=== PATIENT | female | born 1960 | race Caucasian/White ===

== ENCOUNTER 2020-03-09 05:03 | Inpatient (IN) ==
--- NOTE | 2020-01-09 14:27 | PAT Medication Instructions ---
Medication Instructions Date of Service January 09, 2020 Home Medications ibuprofen 200 mg PO Q6H PRN ASK your surgeon for instructions ibuprofen 200 mg PO Q6H PRN OTHERWISE NOTHING TO EAT OR DRINK AFTER MIDNIGHT Other Notes If you have any questions please call us at [phone] or [phone] or [phone] or [phone]
--- NOTE | 2020-01-13 11:51 | Anesthesiology Consultation ---
Date of Service January 13, 2020 Assessment & Plan (1) Encounter for pre-operative examination: Chart Review Chart Review: Acceptable Risk for Surgery (pending preop Covid testing results ) and Patient seen in Pre Admission Testing Per PAT appt on 01/13/20, patient resides in [facility]. Travels to [facility] for work at [id number]. Uses PPE. 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 No known Covid positive contacts o r Covid related symptoms. Educated patient to follow up with surgeon's office regarding Covid testing. Educated on importance of self quarantining, social distancing and wearing mask in public both for the patient and household contacts. Teaching & Discussion Pre-Anesthesia Teaching/Discussion Notes: Instructed NPO after midnight before surgery,except medications with 15 cc of water. Medication instructions provided according to the PAT guidelines. History Surgery Operation Date: 01/28/20 11:40 Proposed Procedures p Left Total Knee Arthroplasty - Michael Prince DO Height/Weight Height: 5 ft 3 in Weight: 82.3 kg Allergies Allergy/AdvReac Type Severity Reaction Status Date / Time meperidine [From Demerol] Allergy Mild low blood Verified 01/07/20 15:18 pressure Medications Home Medications Medication Instructions Recorded Confirmed Last Taken ibuprofen 200 mg PO Q6H PRN 01/07/20 01/07/20 Unknown Past Medical History Medical History Osteoarthritis Exercise / Class Metabolic Activity II 4-5 Yardwork/Stairs/Walk up hill (ONE FLIGHT OF STAIRS - NO CHEST PAIN OR SOB ) Past Surgical History Surgical History Hx of arthroscopy of left knee x 2 Hx of breast reduction, elective Hx of foot surgery right bunionectomy and hammer toe Hx of hysterectomy Past Anesthesia History No Hx of Anesthesia Complications and No Family Hx of Anesthesia Complications History of PONV No Hx of PONV and Hx of Motion Sickness (does get car sick - wears patches ) Social History Smoking Status: Never smoker Do You Dip or Chew Tobacco: No Hx Alcohol Use: No Hx Substance Use: No substance use type: does not use Review of Systems Patient denies chest pain, shortness of breath, dyspnea on exertion, reflux, cough, wheezing, palpitations. No hx of seizures, stroke, [place], apnea/snoring. No hx of blood clots or blood transfusions Physical Exam Vital Signs VITALS BP 156/65 P 67 TEMP 98.0 SP02 99% RESP 16 Constitutional no acute distress ENMT Mouth: no TMJ clicking Thyromental Distance: > or= 3.5 Finger Breadths (3.5) Mallampati Class: II Capped molar Neck + thick neck (mild ); neck extension not limited Respiratory normal respiratory effort; no respiratory distress Auscultation: lungs clear to auscultation bilaterally; no wheezes Cardiovascular Rate/Rhythm: regular rate and regular rhythm Heart Sounds: no murmur Vessels: no carotid bruit Musculoskeletal Spine: no pain with cervical ROM Neurologic moves all extremities Psychiatric Orientation: alert Testing Laboratory Results 01/13/20 12:14 01/13/20 12:14 PT 11.0 Seconds (9.0-12.0) 01/13/20 12:14 INR 1.0 (0.9-1.1) 01/13/20 12:14 APTT 26.9 Seconds (21.0-31.0) 01/13/20 12:14 Hemoglobin A1c 5.6 % (4.5-5.6) 01/13/20 12:14 Urine Color Yellow 01/13/20 12:14 Urine Appearance Clear (Clear) 01/13/20 12:14 Urine pH 5.0 (4.5-7.5) 01/13/20 12:14 Ur Specific Welsh 1.022 (1.000-1.030) 01/13/20 12:14 Urine Protein Negative (Negative) 01/13/20 12:14 Urine Glucose (UA) Negative (Negative) 01/13/20 12:14 Urine Ketones Negative (Negative) 01/13/20 12:14 Urine Nitrite Negative (Negative) 01/13/20 12:14 Ur Leukocyte Esterase 1+ (Negative) H 01/13/20 12:14 Urine WBC (Auto) 5-10 /hpf (0-5) H 01/13/20 12:14 Urine RBC (Auto) 0-4 /hpf (0-4) 01/13/20 12:14 U Hyaline Cast (Auto) 1-5 /lpf (0-5) 01/13/20 12:14 U Epithel Cells (Auto) >30 /lpf (0-5) H 01/13/20 12:14 Urine Bacteria (Auto) Negative (Negative) 01/13/20 12:14 Blood Type O Positive 01/13/20 12:14 Antibody Screen NEGATIVE 01/13/20 12:14 Electrocardiogram Date: 01/13/20 Findings: + NSR @ (65) Normal EKG. Chest X-Ray Date: 01/13/20 Findings: + NAD
--- NOTE | 2020-01-13 12:53 | XRay Report ---
XR chest Pre-admission PA/Lat HISTORY: 59 years-old Female pat preoperative exam. No acute chest complaints COMPARISON: None TECHNIQUE: PA and lateral views of the chest FINDINGS: Cardiomediastinal and hilar silhouettes are within normal limits. No pneumothorax, pleural effusion, airspace consolidation or overt pulmonary edema. Bones of the chest appear grossly intact. Degenerati ve changes of the shoulders and spine. IMPRESSION: No acute process. ACT 112: Negative or not required by law. The above report was generated using voice recognition software. It may contain grammatical, syntax o r spelling errors. Electronically signed by: Naveen Mcknight M.D. 01/13/2020 12:51 PM
--- NOTE | 2020-01-13 13:26 | History & Physical Report ---
Date of Service January 13, 2020 date of surgery: 01/28/20 procedure: Left Total Knee Arthroplasty Assessment & Plan (1) Arthritis of knee, left: Risks and benefits of procedure discussed in detail today, patient would like to proceed with a total knee replacement at [facility] as scheduled. will obtain medical clearance from Dr Meléndez prior to surgery as well as obtain PATs at [facility]. Will place on ASA 81mg po bid x 1 month post op, f/u 2 weeks post op for routine post-operative care and x-ray, sooner if having any problems. will make arrangements for HHPT at the time of discharge. At this point in time, has failed conservative measures and would like to proceed with surgical intervention. The risks and benefits have been discussed including, but not limited to, risk of infection, nerve injury, stiffness, loss of motion, failure to improve, etc. Reasonable outcomes and options of treatment were discussed. An explanation of appropriate alternatives to the procedure that may be advantageous were discussed and their risks and benefits, as well as the risks and benefits of not proceeding with treatment. I offered to answer any additional inquiries concerning the treatment involved. All the patient's questions were answered. The patient is agreeable, understanding of the treatment plan and alternatives, and wishes to proceed with the treatment plan. History of Present Illness Chief Complaint: left knee pain Primary Care Provider: Everton Medhat Cony is a 59 year old female who complains of left knee pain, presents for pre-op evaluation prior to a left total knee replacement by dr Prince at [facility]. she complains of pain, crepitus, decreased range of motion and stiffness in her left knee. she states that the symptoms have been chronic and have gradually worsened. she states that the symptoms occur constantly with intermittent worsening. Currently the patient states that the symptoms are moderate-severe. The pain is described as aching, sharp and throbbing. The symptoms are aggravated by ascending stairs, daily activities, first steps while awake walking. Prior NSAIDs include Motrin. she has been treated with previous cortisone injections as well as viscosupplementation injections in the past without much relief. she has had 2 prior knee scopes in 2013 and 2016. Allergies Allergy/AdvReac Type Severity Reaction Status Date / Time meperidine [From Demerol] Allergy Mild low blood Verified 01/07/20 15:18 pressure Home Medications Home Medications Medication Instructions Recorded Confirmed Type ibuprofen 200 mg PO Q6H PRN 01/07/20 01/07/20 History Past Med/Surg History Medical History Osteoarthritis Surgical History Hx of arthroscopy of left knee x 2 Hx of breast reduction, elective Hx of foot surgery right bunionectomy and hammer toe Hx of hysterectomy Social History Smoking Status: Never smoker Second Hand Exposure: No; Do You Dip or Chew Tobacco: No; Tobacco Cessation Education Requested by Patient: No Hx Alcohol Use: No Hx Substance Use: No Preferred Language: Maldivian Communication Ability: Effective 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 Beliefs That Will Affect Care: None Current Living Situation: Spouse Other Information That Helps Us Care for You: No Feels Safe at Home: Yes Safety Concerns: Feels Safe At This Time Assistive Devices: Glasses Review of Systems Review of Systems: All systems reviewed & are unremarkable except as noted in HPI & below Constitutional: no fever, no chills and no sweats Respiratory: no cough and no dyspnea Cardiovascular: no chest pain, no dyspnea and no orthopnea Gastrointestinal: no abdominal pain, no nausea and no vomiting Musculoskeletal: as per Subjective / HPI Physical Exam Physical Exam: HT: 5ft 3in WT: 180lb BP: 138/78 Pulse: 71 Constitutional: WD/WN, vitals as above no acute distress Respiratory: normal respiratory effort, lungs clear to auscultation no respiratory distress, no labored breathing and does not use accessory muscles Cardiovascular: RRR, no murmur, no edema Gastrointestinal (Abdomen): normal bowel sounds, soft, nontender, no hepatosplenomegaly Musculoskeletal: Knee: + knee abnormal to inspection (LEFT KNEE), + effusion (+1 effusion), + surgical incision (well healed portals), + limited ROM of knee (ROM 0/3/110), + knee ROM with crepitation, + joint line tenderness (medial joint line) and + Hawa's sign positive; no deformity, no skin erythema, no ecchymosis, no valgus laxity, no varus laxity, anterior drawer test negative, Sonny's sign negative and pivot shift test negative Results & Data Results & Data ([facility]) Diagnostic Findings Left Knee X-ray: left knee series confirm advanced degenerative changes to the left knee, greatest medial compartments and patellofemoral joint, showing joint space narrowing, osteophyte formation and subchondral sclerosis. no acute bony pathology noted.
[2020-01-13 13:45] LABS: Basophils # (auto) 0.04 K/uL (0-0.2); Basophils % (auto) 0.4 %; Eosinophils # (auto) 0.21 K/uL (0-0.5); Eosinophils % (auto) 2.2 %; Hematocrit (blood only) 41.9 % (37-47); Hemoglobin 13.6 g/dL (12.0-16.0); Immature Granulocytes # (auto) 0.01 K/uL (0.00-0.02); Immature Granulocytes % (auto) 0.1 %; Lymphocytes # (auto) 2.63 K/uL (1.2-3.4); Lymphocytes % (auto) 28.2 %; Mean Corpuscular Hemoglobin 29.2 pg (25-34); Mean Corpuscular Hgb Conc 32.5 g/dL (32-36); Mean Corpuscular Volume 89.9 fL (80-100); Mean Platelet Volume 11.5 fL (7.4-10.4); Monocytes # (auto) 0.66 K/uL (0.11-0.59); Monocytes % (auto) 7.1 %; Neutrophils # (auto) 5.79 K/uL (1.4-6.5); Platelet Count 311 K/uL (130-400); RDW Coefficient of Variation 13.6 % (11.5-14.5); RDW Standard Deviation 44.6 fL (36.4-46.3); Red Blood Count 4.66 M/uL (4.2-5.4); White Blood Count 9.34 K/uL (4.8-10.8)
[2020-01-13 13:58] LABS: Albumin Level 3.9 gm/dl (3.4-5.0); BUN Creatinine Ratio 21.4 (10-20); Creatinine Clr Calc Pharmacy 85.3 ml/min; Est GFR (African American) 105.2; Est GFR (Non-African American) 90.8; Potassium 3.7 mmol/L (3.5-5.1)
[2020-01-13 14:03] LABS: Partial Thromboplastin Time 26.9 Seconds (21.0-31.0)
[2020-01-13 14:18] LABS: Estimated Average Glucose 114 mg/dl; Hemoglobin A1C 5.6 % (4.5-5.6)
[2020-01-13 14:27] LABS: Appearance Urine Clear (Clear); Bacteria Urine Automated Negative (Negative); Bilirubin Urine Negative (Negative); Blood Urine Negative (Negative); Color Urine Yellow; Epithelial Cell Urine Auto >30 /lpf (0-5); Glucose Urine UA Negative (Negative); Ketones Urine Negative (Negative); Leukocyte Esterase Urine 1+ (Negative); Nitrite Urine Negative (Negative); Protein Urine Negative (Negative); RBC Urine Automated 0-4 /hpf (0-4); Specific Gravity Urine 1.022 (1.000-1.030); Urobilinogen Urine Negative (Negative)
--- NOTE | 2020-01-13 17:31 | Electrocardiogram Report ---
Test Reason : Blood Pressure : / mmHG Vent. Rate : 065 BPM Atrial Rate : 065 BPM P-R Int : 194 ms QRS Dur : 088 ms QT Int : 424 ms P-R-T Axes : 035 -18 009 degrees QTc Int : 440 ms Normal sinus rhythm Normal ECG When compared with ECG of 02-NOV-2015 17:13, No significant change was found Confirmed by Pablo Phan ([id number]) on 01/13/2020 5:31:27 PM Referred By: Michael Prince Confirmed By:Main Phan
--- NOTE | 2020-02-09 07:46 | History & Physical Report ---
Date of Service February 09, 2020 date of surgery: 02/25/20 procedure: Left Total Knee Arthroplasty Assessment & Plan (1) Arthritis of knee, left: Risks and benefits of procedure discussed in detail today, patient would like to proceed with a Left total knee replacement at [facility] as scheduled. will obtain medical clearance from Dr Meléndez prior to surgery as well as obtain PATs at [facility]. Will place on ASA 81mg po bid x 1 month post op, f/u 2 weeks post op for routine post-operative care and x-ray, sooner if having any problems. will make arrangements for HHPT at the time of discharge. At this point in time, has failed conservative measures and would like to proceed with surgical intervention. The risks and benefits have been discussed including, but not limited to, risk of infection, nerve injury, stiffness, loss of motion, failure to improve, etc. Reasonable outcomes and options of treatment were discussed. An explanation of appropriate alternatives to the procedure that may be advantageous were discussed and their risks and benefits, as well as the risks and benefits of not proceeding with treatment. I offered to answer any additional inquiries concerning the treatment involved. All the patient's questions were answered. The patient is agreeable, understanding of the treatment plan and alternatives, and wishes to proceed with the treatment plan. History of Present Illness Chief Complaint: left knee pain Primary Care Provider: Everton Hilllin Cony is a 59 year old female who complains of left knee pain, presents for pre-op evaluation prior to a left total knee replacement by dr Prince at [facility]. she complains of pain, crepitus, decreased range of motion and stiffness in her left knee. she states that the symptoms have been chronic and have gradually worsened. she states that the symptoms occur constantly with intermittent worsening. Currently the patient states that the symptoms are moderate-severe. The pain is described as aching, sharp and throbbing. The symptoms are aggravated by ascending stairs, daily activities, first steps while awake walking. Prior NSAIDs include Motrin. she has been treated with previous cortisone injections as well as viscosupplementation injections in the past without much relief. she has had 2 prior knee scopes in 2013 and 2016. Allergies Allergy/AdvReac Type Severity Reaction Status Date / Time meperidine [From Demerol] Allergy Mild low blood Verified 01/07/20 15:18 pressure Home Medications Home Medications Medication Instructions Recorded Confirmed Type ibuprofen 200 mg PO Q6H PRN 01/07/20 01/07/20 History Past Med/Surg History Medical History Osteoarthritis Surgical History Hx of arthroscopy of left knee x 2 Hx of breast reduction, elective Hx of foot surgery right bunionectomy and hammer toe Hx of hysterectomy Social History Smoking Status: Never smoker Second Hand Exposure: No; Do You Dip or Chew Tobacco: No; Tobacco Cessation Education Requested by Patient: No Hx Alcohol Use: No Hx Substance Use: No Preferred Language: Cameroonian Communication Ability: Effective Ship Engineer Required: No Beliefs That Will Affect Care: None Current Living Situation: Spouse Other Information That Helps Us Care for You: No Feels Safe at Home: Yes Safety Concerns: Feels Safe At This Time Assistive Devices: Glasses Review of Systems 2 Review of Systems: All systems reviewed & are unremarkable except as noted in HPI & below Constitutional: no fever, no chills and no sweats Respiratory: no cough and no dyspnea Cardiovascular: no chest pain, no dyspnea and no orthopnea Gastrointestinal: no abdominal pain, no nausea and no vomiting Musculoskeletal: as per Subjective / HPI Physical Exam Physical Exam: HT: 5ft 3in WT: 180lb BP: 138/78 Pulse: 71 Constitutional: WD/WN, vitals as above no acute distress Respiratory: normal respiratory effort, lungs clear to auscultation no respiratory distress, no labored breathing and does not use accessory muscles Cardiovascular: RRR, no murmur, no edema Gastrointestinal (Abdomen): normal bowel sounds, soft, nontender, no hepatosplenomegaly Musculoskeletal: Knee: + knee abnormal to inspection (LEFT KNEE), + effusion (+1 effusion), + surgical incision (well healed portals), + limited ROM of knee (ROM 0/3/110), + knee ROM with crepitation, + joint line tenderness (medial joint line) and + Hawa's sign positive; no deformity, no skin erythema, no ecchymosis, no valgus laxity, no varus laxity, anterior drawer test negative, Sonny's sign negative and pivot shift test negative Results & Data Results & Data ([facility]) Laboratory Results Laboratory Results WBC 9.34 K/uL (4.8-10.8) 01/13/20 12:14 RBC 4.66 M/uL (4.2-5.4) 01/13/20 12:14 Hgb 13.6 g/dL (12.0-16.0) 01/13/20 12:14 Hct 41.9 % (37-47) 01/13/20 12:14 MCV 89.9 fL (80-100) 01/13/20 12:14 MCH 29.2 pg (25-34) 01/13/20 12:14 MCHC 32.5 g/dL (32-36) 01/13/20 12:14 RDW Std Deviation 44.6 fL (36.4-46.3) 01/13/20 12:14 RDW Coeff of Robin 13.6 % (11.5-14.5) 01/13/20 12:14 Plt Count 311 K/uL (130-400) 01/13/20 12:14 MPV 11.5 fL (7.4-10.4) H 01/13/20 12:14 Immature Gran % (Auto) 0.1 % 01/13/20 12:14 Neut % (Auto) 62.0 % 01/13/20 12:14 Lymph % (Auto) 28.2 % 01/13/20 12:14 Pecos % (Auto) 7.1 % 01/13/20 12:14 Eos % (Auto) 2.2 % 01/13/20 12:14 Baso % (Auto) 0.4 % 01/13/20 12:14 Neut # (Auto) 5.79 K/uL (1.4-6.5) 01/13/20 12:14 Lymph # (Auto) 2.63 K/uL (1.2-3.4) 01/13/20 12:14 Pecos # (Auto) 0.66 K/uL (0.11-0.59) H 01/13/20 12:14 Eos # (Auto) 0.21 K/uL (0-0.5) 01/13/20 12:14 Baso # (Auto) 0.04 K/uL (0-0.2) 01/13/20 12:14 Immature Gran # (Auto) 0.01 K/uL (0.00-0.02) 01/13/20 12:14 PT 11.0 Seconds (9.0-12.0) 01/13/20 12:14 INR 1.0 (0.9-1.1) 01/13/20 12:14 APTT 26.9 Seconds (21.0-31.0) 01/13/20 12:14 PTT Ratio 1.0 01/13/20 12:14 Sodium 141 mmol/L (136-145) 01/13/20 12:14 Potassium 3.7 mmol/L (3.5-5.1) 01/13/20 12:14 Chloride 108 mmol/L (98-107) H 01/13/20 12:14 Carbon Dioxide 25 mmol/L (21-32) 01/13/20 12:14 Anion Gap 8.0 (3-11) 01/13/20 12:14 BUN 16 mg/dl (7-18) 01/13/20 12:14 Creatinine 0.73 mg/dl (0.6-1.2) 01/13/20 12:14 Est Cr Clr Drug Dosing 85.3 ml/min 01/13/20 12:14 Est GFR ( Amer) 105.2 01/13/20 12:14 Est GFR (Non-Af Amer) 90.8 01/13/20 12:14 BUN/Creatinine Ratio 21.4 (10-20) H 01/13/20 12:14 Glucose 84 mg/dl (70-99) 01/13/20 12:14 Estimat Average Glucose 114 mg/dl 01/13/20 12:14 Hemoglobin A1c 5.6 % (4.5-5.6) 01/13/20 12:14 Calcium 9.0 mg/dl (8.5-10.1) 01/13/20 12:14 Albumin 3.9 gm/dl (3.4-5.0) 01/13/20 12:14 Urine Color Yellow 01/13/20 12:14 Urine Appearance Clear (Clear) 01/13/20 12:14 Urine pH 5.0 (4.5-7.5) 01/13/20 12:14 Ur Specific Isabela 1.022 (1.000-1.030) 01/13/20 12:14 Urine Protein Negative (Negative) 01/13/20 12:14 Urine Glucose (UA) Negative (Negative) 01/13/20 12:14 Urine Ketones Negative (Negative) 01/13/20 12:14 Urine Blood Negative (Negative) 01/13/20 12:14 Urine Nitrite Negative (Negative) 01/13/20 12:14 Urine Bilirubin Negative (Negative) 01/13/20 12:14 Urine Urobilinogen Negative (Negative) 01/13/20 12:14 Ur Leukocyte Esterase 1+ (Negative) H 01/13/20 12:14 Urine WBC (Auto) 5-10 /hpf (0-5) H 01/13/20 12:14 Urine RBC (Auto) 0-4 /hpf (0-4) 01/13/20 12:14 U Hyaline Cast (Auto) 1-5 /lpf (0-5) 01/13/20 12:14 U Epithel Cells (Auto) >30 /lpf (0-5) H 01/13/20 12:14 Urine Bacteria (Auto) Negative (Negative) 01/13/20 12:14 Blood Type O Positive 01/13/20 12:14 Antibody Screen NEGATIVE 01/13/20 12:14 Diagnostic Findings Left Knee X-ray: left knee series confirm advanced degenerative changes to the left knee, greatest medial compartments and patellofemoral joint, showing joint space narrowing, osteophyte formation and subchondral sclerosis. no acute bony pathology noted.
[~2020-03-09 05:03] MED LIST: ACETAMINOPHEN 500 MG TAB PO SCH; CeleBREX 200 MG CAP PO SCH; FAMOTIDINE 20 MG TAB PO SCH; GABAPENTIN 600 MG DOSE PO SCH; LR 500ML BOLUS, THEN 15ML/HR IV SCH; METOCLOPRAMIDE HCL 10 MG TABLET PO SCH; ROPIVACAINE 0.5% HCL/PF 150 MG, BUPIVACAINE 0.5% MPF 30 ML, EPINEPHrine 30MG/30ML (OR U... INSTIL SCH; TRANEXAMIC ACID 1,000 MG **IV Intra-op IV SCH; TRANEXAMIC ACID 1,000 MG **IV Pre-op IV SCH; ceFAZolin 2000MG 2,000 MG/15 ML SYR IV SCH; dexAMETHasone 4 MG TAB PO SCH
[2020-03-09] MEDS ORDERED: dexAMETHasone 4 MG TAB PO SCH (06:00)
[2020-03-09] MEDS ORDERED: ACETAMINOPHEN 500 MG TAB PO SCH (06:00)
[2020-03-09] MEDS ORDERED: TRANEXAMIC ACID 1,000 MG **IV Pre-op IV SCH (06:00)
[2020-03-09] MEDS ORDERED: ROPIVACAINE 0.5% HCL/PF 150 MG, BUPIVACAINE 0.5% MPF 30 ML, EPINEPHrine 30MG/30ML (OR U... INSTIL SCH (06:00)
[2020-03-09] MEDS ORDERED: TRANEXAMIC ACID 1,000 MG **IV Intra-op IV SCH (06:00)
[2020-03-09] MEDS ORDERED: ceFAZolin 2000MG 2,000 MG/15 ML SYR IV SCH (06:00)
[2020-03-09] MEDS ORDERED: METOCLOPRAMIDE HCL 10 MG TABLET PO SCH (06:00)
[2020-03-09] MEDS ORDERED: GABAPENTIN 600 MG DOSE PO SCH (06:00)
[2020-03-09] MEDS ORDERED: FAMOTIDINE 20 MG TAB PO SCH (06:00)
[2020-03-09] MEDS ORDERED: CeleBREX 200 MG CAP PO SCH (06:00)
[2020-03-09] MEDS ORDERED: LR 500ML BOLUS, THEN 15ML/HR IV SCH (06:00)
[2020-03-09] MEDS ORDERED: ROPIVACAINE 0.5% 5 MG/ML 30 ML VIAL ONE (06:26)
[2020-03-09] MEDS ORDERED: BUPIVACAINE 0.5 % 5 MG/1 ML PF 10ML VIAL ONE (06:26)
[2020-03-09] MEDS ORDERED: EPINEPHrine INJ 1 MG/ML AMP ONE (06:26)
[2020-03-09] MEDS ORDERED: LIDOCAINE HCL 2% 2 ML VIAL/AMP(20MG/ML) INFIL ONE (06:39)
[2020-03-09] MEDS ORDERED: PROPOFOL IV EMULSION 10 MG/ML 20 ML VIAL IV ONE ×2 (06:39→08:58)
[2020-03-09] MEDS ORDERED: ONDANSETRON INJ 2 MG/ML 2 ML VIAL ONE (06:39)
[2020-03-09] MEDS ORDERED: MIDAZOLAM HCL 1 MG/ML 2ML VIAL ONE (06:39)
[2020-03-09] MEDS ORDERED: ORTHO JOINT ANESTHETIC ONE (07:03)
[2020-03-09] MEDS ORDERED: BACITRACIN INJ 50,000 UNIT VIAL ONE (07:03)
[2020-03-09] MEDS ORDERED: ATROPINE SULFATE 0.1 MG/ML 10ML SYR IV PRN (07:08)
[2020-03-09] MEDS ORDERED: PHENYLEPHRINE 100MCG/ML 5ML SYR IV PRN (07:08)
[2020-03-09] MEDS ORDERED: fentaNYL citrate 100 MCG/2 ML VIAL IV PRN (07:08)
[2020-03-09] MEDS ORDERED: LABETALOL HCL IV 5 MG/ML 20ML IV PRN (07:08)
[2020-03-09] MEDS ORDERED: ONDANSETRON INJ 2 MG/ML 2 ML VIAL IV PRN ×2 (07:08→10:40)
[2020-03-09] MEDS ORDERED: HYDROmorphone INJ 1 MG/ML SYRINGE IV PRN ×2 (07:08→10:40)
[2020-03-09] MEDS ORDERED: ePHEDrine sulfate 50 MG/ML AMP IV PRN (07:08)
--- NOTE | 2020-03-09 07:18 | History & Physical Bridge Note ---
Date of Service March 09, 2020 History & Physical Bridge Note I have examined the patient, reviewed the History & Physical and in the interval since the performance of the History & Physical I have noted the following changes of clinical significance: no changes noted
--- NOTE | 2020-03-09 08:29 | Operative Report ---
Post Operative Report Pre & Post Diagnosis Operation Date: 01/28/20 07:00 <No data on this case meets the specified criteria> Operation Date: 02/25/20 08:20 <No data on this case meets the specified criteria> Operation Date: 03/09/20 07:15 Pre-Op Diagnosis: Osteoarthritis, Left Knee Post-Op Diagnosis: Osteoarthritis, Left Knee I identified the patient and participated in the time-out.: Yes Procedure Operation Date: 01/28/20 07:00 <No data on this case meets the specified criteria> Operation Date: 02/25/20 08:20 <No data on this case meets the specified criteria> Operation Date: 03/09/20 07:15 Actual Procedures p Left Total Knee Arthroplasty(Left) total knee arthroplasty utilizing Moyer [employer] Nephew journey to nonblock total knee arthroplasty size 4 femur 4 tibia 9 polyethylene 29 oval patella- Michael Prince DO Surgeon Michael Prince DO Phone Specialist Segundo SMITH Estimated Blood Loss 5 Findings Consistent with Post-Op Diagnosis Patient presents with severe end-stage tricompartmental degenerative joint disease left knee varus alignment subchondral sclerosis marginal osteophytes eburnated [id number] with moderate to large effusion Specimens Bone and cartilage Drains Medium bore Hemovac Anesthesia Type MAC Spinal Regional Complications none Disposition Accompanied Patient To Recovery: No Disposition: Recovery Room Indications Patient presents with severe end-stage tricompartmental degenerative joint disease left knee for left total knee arthroplasty is failed attempted conservative management daily physical therapy anti-inflammatories relative rest activity modification corticosteroid injection Visco supplementation presents for left total knee arthroplasty the above intraoperative findings were noted Description of Procedure After proper prepping and draping of the left lower extremity anterior midline incision was made over the region of the extensor extensor mechanism after meticulous hemostasis was obtained and maintained in subcutaneous tissues a medial parapatellar incision was made The patella was subluxed lateralward the medial lateral gutter were cleaned from any hypertrophic synovitis and scar tissue of the distal femoral block was placed and the distal femoral osteotomy cut was made subsequently the chamfers anterior and posterior osteotomy cuts were made utilizing the 4-in-1 block the tibia was subsequently subluxed anteriorward medial and ateral meniscal remnants were excised in their entirety remnants of the anterior and posterior cruciate ligaments were excised in their entirety excellent exposure of the proximal tibia was obtained the tibial osteotomy guide was placed on the proximal tibial osteotomy cut was made once again the knee was irrigated with copious amounts of sterile saline solution the patella was subsequently everted lateralward thickened scar tissue around the patella was removed the patella was subsequently cut utilizing a freehand technique and was drilled prepared for final preparation and placement of patella socially flexion-extension gaps were checked and the equal and symmetric trials were placed to the appropriate femoral and tibial trials with poly-spacer being placed for equal flexion and extension gaps and full range of motion including extension to 0 and flexion to 140 the trial components after having been taken to recovery range of motion was subsequently removed meticulous hemostasis was obtained and maintained subsequently a knee block injection of joint cocktail including ropivacaine 0.5% 150 mg. Bupivacaine 0.5% epinephrine 1-200,030 mL's toradol 30 mg dexamethasone 4 mg ketamine 10 mg clonidine 100 micrograms normal saline solution 30 mg was infiltrated into the soft tissues of the posterior knee medial lateral gutters and periosteal synovium special attention was paid to protect neurovascular structures at all times subsequently trial components having been removed the knee was irrigated with sterile saline solution. debris was removed the proximal tibia was subsequently prepared and was made ready for the placement of the tibial component tibial component was also cemented and tamped into position the femoral component was subsequently placed and cemented in the position the patellar component was subsequently cemented in position because hemostasis once again obtained and maintained wound having been thoroughly irrigated with debridement and debridement lavage was performed as well as a medial parapatellar incision closed with #1 Vicryl in interrupted fashion subcutaneous was closed with #2 Vicryl skin was closed with skin clips. PA-C was necessary for prepping and drapping as well as wound closure of deep fascia Sub cutaneous tissue and skin and was necessary for the case. A sterile compressive dressing was placed patient was taken to recovery in stable condition of report dictated by Suresh I attest to the content of the Intraoperative Record and any orders documented therein. Any exceptions are noted below. I attest to the content of the Intraoperative Record and any orders documented therein. Any exceptions are noted below.
--- NOTE | 2020-03-09 09:37 | XRay Report ---
LEFT KNEE 2 VIEWS History: Left total knee arthroplasty. Degenerative arthritis. Postop. FINDINGS: The patient is status post a left total knee arthroplasty. The hardware is intact. No fract ure or dislocation. Surgical drains are in place. IMPRESSION: Left total knee arthroplasty. No evidence for hardware complication. ACT 112: Negative or not required by law. Electronically signed by: Silver Cardona M.D. 03/09/2020 9:35 AM
--- NOTE | 2020-03-09 09:38 | Anesthesiology Progress Note ---
Date of Service March 09, 2020 Anesthesia Post Procedure Vital Signs Vital Signs: Temp Pulse Pulse Resp BP Pulse Ox 03/09/20 09:11 36.3 C L 92 H 14 94/50 L 99 03/09/20 06:00 83 20 148/76 H 98 03/09/20 05:15 37.1 C 87 20 166/98 H 98 Transfer of Care Handoff Completed per policy Notes Mental Status: alert / awake / arousable Patient Amnestic to Procedure: Yes Nausea / Vomiting: adequately controlled Pain: adequately controlled Airway Patency, RR, SpO2: stable & adequate BP & HR: stable & adequate Hydration State: stable & adequate Neuraxial Anesthesia: was administered and sensory block is resolving Anesthetic Complications: no major complications apparent and Pt Satisfied with anesthetic care
[2020-03-09] MEDS ORDERED: MAGNESIUM HYDROXIDE SUSP 30 ML UDC PO PRN (10:40)
[2020-03-09] MEDS ORDERED: bisacodyL 10 MG SUPP PR PRN (10:40)
[2020-03-09] MEDS ORDERED: oxyCODONE HCL IR 5 MG TAB (IMMEDIATE RELEASE) PO PRN (10:40)
[2020-03-09] MEDS ORDERED: NALOXONE HCL 0.4 MG/1 ML VIAL/CARP IV PRN (10:40)
[2020-03-09] MEDS ORDERED: METOCLOPRAMIDE HCL INJ 5 MG/ML 2 ML VIAL IV PRN (10:40)
[2020-03-09] MEDS ORDERED: diphenhydrAMINE Capsule 25 MG CAP PO PRN (10:40)
[2020-03-09] MEDS: SODIUM CHLORIDE 0.9% 1000ML 1,000 ML IV SCH ×2 (13:07→22:42)
[2020-03-09] MEDS: KETOROLAC 30 MG/ML VIAL IV SCH ×2 (13:30→16:56)
[2020-03-09] MEDS: ACETAMINOPHEN 500 MG TAB PO SCH ×2 (13:38→21:05)
[2020-03-09] MEDS: ceFAZolin 2000MG 2,000 MG/15 ML SYR IV SCH (16:53)
[2020-03-09] MEDS ORDERED: SENNA 8.6 MG TAB PO SCH (21:00)
[2020-03-09] MEDS: DOCUSATE SODIUM 100 MG CAP PO SCH (21:04)
[2020-03-09] MEDS: ASPIRIN 81 MG ECTAB PO SCH (21:05)
[2020-03-10] MEDS: ceFAZolin 2000MG 2,000 MG/15 ML SYR IV SCH (00:06)
[2020-03-10] MEDS: KETOROLAC 30 MG/ML VIAL IV SCH ×2 (00:15→05:33)
[2020-03-10] MEDS: ACETAMINOPHEN 500 MG TAB PO SCH ×2 (05:33→13:42)
[2020-03-10 06:53] LABS: Hematocrit (blood only) 34.6 % (37-47); Hemoglobin 11.1 g/dL (12.0-16.0); Mean Corpuscular Hemoglobin 29.3 pg (25-34); Mean Corpuscular Hgb Conc 32.1 g/dL (32-36); Mean Corpuscular Volume 91.3 fL (80-100); Mean Platelet Volume 11.3 fL (7.4-10.4); Platelet Count 275 K/uL (130-400); RDW Coefficient of Variation 13.7 % (11.5-14.5); RDW Standard Deviation 45.7 fL (36.4-46.3); Red Blood Count 3.79 M/uL (4.2-5.4); White Blood Count 17.97 K/uL (4.8-10.8)
[2020-03-10 07:22] LABS: BUN Creatinine Ratio 20.7 (10-20); Calcium 8.2 mg/dl (8.5-10.1); Creatinine Clr Calc Pharmacy 75.8 ml/min; Est GFR (African American) 92.8; Est GFR (Non-African American) 80.1
--- NOTE | 2020-03-10 08:57 | Orthopedic Progress Note ---
Date of Service March 10, 2020 Assessment & Plan (1) Arthritis of knee, left: POD 1 s/p Left TKA PT/OT protocols - WBAT DVT proph - ASA bid, SCD's, GUANAKO's Pain management as written Leukocytosis - asymptomatic; likely due to preop steroids and surgical stress. DC planning - Home with home health services. Admission and Anticipated Discharge Date Admission Date: March 09, 2020 Subjective POD 1 Pt just finishing breakfast. No complaints. Pain controlled. Denies SOB, CP,LH, JAVIER. Hoping to go home today. States she ambulated around the hallway last night. Physical Exam Physical Exam: Dressings are C/D/I. Calves are soft and NT. NV intact. Toes mobile. Good DF/PF noted. Results & Data ([facility]) Vital Signs (Past 12 Hours) Vital Signs Temp Pulse Resp BP Pulse Ox 03/10/20 07:55 36.5 C 60 18 136/64 97 03/10/20 03:42 36.8 C 69 15 114/64 95 03/09/20 23:50 36.9 C 66 16 122/63 94 03/09/20 21:44 62 18 113/61 93 Laboratory Results Laboratory Results WBC 17.97 K/uL (4.8-10.8) H 03/10/20 06:17 RBC 3.79 M/uL (4.2-5.4) L 03/10/20 06:17 Hgb 11.1 g/dL (12.0-16.0) L 03/10/20 06:17 Hct 34.6 % (37-47) L 03/10/20 06:17 MCV 91.3 fL (80-100) 03/10/20 06:17 MCH 29.3 pg (25-34) 03/10/20 06:17 MCHC 32.1 g/dL (32-36) 03/10/20 06:17 RDW Std Deviation 45.7 fL (36.4-46.3) 03/10/20 06:17 RDW Coeff of Robin 13.7 % (11.5-14.5) 03/10/20 06:17 Plt Count 275 K/uL (130-400) 03/10/20 06:17 MPV 11.3 fL (7.4-10.4) H 03/10/20 06:17 Immature Gran % (Auto) 0.1 % 01/13/20 12:14 Neut % (Auto) 62.0 % 01/13/20 12:14 Lymph % (Auto) 28.2 % 01/13/20 12:14 [place] % (Auto) 7.1 % 01/13/20 12:14 Eos % (Auto) 2.2 % 01/13/20 12:14 Baso % (Auto) 0.4 % 01/13/20 12:14 Neut # (Auto) 5.79 K/uL (1.4-6.5) 01/13/20 12:14 Lymph # (Auto) 2.63 K/uL (1.2-3.4) 01/13/20 12:14 [place] # (Auto) 0.66 K/uL (0.11-0.59) H 01/13/20 12:14 Eos # (Auto) 0.21 K/uL (0-0.5) 01/13/20 12:14 Baso # (Auto) 0.04 K/uL (0-0.2) 01/13/20 12:14 Immature Gran # (Auto) 0.01 K/uL (0.00-0.02) 01/13/20 12:14 PT 11.0 Seconds (9.0-12.0) 01/13/20 12:14 INR 1.0 (0.9-1.1) 01/13/20 12:14 APTT 26.9 Seconds (21.0-31.0) 01/13/20 12:14 PTT Ratio 1.0 01/13/20 12:14 Sodium 140 mmol/L (136-145) 03/10/20 06:17 Potassium 4.0 mmol/L (3.5-5.1) 03/10/20 06:17 Chloride 109 mmol/L (98-107) H 03/10/20 06:17 Carbon Dioxide 26 mmol/L (21-32) 03/10/20 06:17 Anion Gap 5.0 (3-11) 03/10/20 06:17 BUN 17 mg/dl (7-18) 03/10/20 06:17 Creatinine 0.81 mg/dl (0.6-1.2) 03/10/20 06:17 Est Cr Clr Drug Dosing 75.8 ml/min 03/10/20 06:17 Est GFR ( Amer) 92.8 03/10/20 06:17 Est GFR (Non-Af Amer) 80.1 03/10/20 06:17 BUN/Creatinine Ratio 20.7 (10-20) H 03/10/20 06:17 Glucose 98 mg/dl (70-99) 03/10/20 06:17 Estimat Average Glucose 114 mg/dl 01/13/20 12:14 Hemoglobin A1c 5.6 % (4.5-5.6) 01/13/20 12:14 Calcium 8.2 mg/dl (8.5-10.1) L 03/10/20 06:17 Albumin 3.9 gm/dl (3.4-5.0) 01/13/20 12:14 Urine Color Yellow 01/13/20 12:14 Urine Appearance Clear (Clear) 01/13/20 12:14 Urine pH 5.0 (4.5-7.5) 01/13/20 12:14 Ur Specific [place] 1.022 (1.000-1.030) 01/13/20 12:14 Urine Protein Negative (Negative) 01/13/20 12:14 Urine Glucose (UA) Negative (Negative) 01/13/20 12:14 Urine Ketones Negative (Negative) 01/13/20 12:14 Urine Blood Negative (Negative) 01/13/20 12:14 Urine Nitrite Negative (Negative) 01/13/20 12:14 Urine Bilirubin Negative (Negative) 01/13/20 12:14 Urine Urobilinogen Negative (Negative) 01/13/20 12:14 Ur Leukocyte Esterase 1+ (Negative) H 01/13/20 12:14 Urine WBC (Auto) 5-10 /hpf (0-5) H 01/13/20 12:14 Urine RBC (Auto) 0-4 /hpf (0-4) 01/13/20 12:14 U Hyaline Cast (Auto) 1-5 /lpf (0-5) 01/13/20 12:14 U Epithel Cells (Auto) >30 /lpf (0-5) H 01/13/20 12:14 Urine Bacteria (Auto) Negative (Negative) 01/13/20 12:14 Blood Type O Positive 01/13/20 12:14 Antibody Screen NEGATIVE 01/13/20 12:14
[2020-03-10] MEDS ORDERED: MULTIVITAMIN TAB PO SCH (09:00)
[2020-03-10] MEDS: ASPIRIN 81 MG ECTAB PO SCH (09:16)
[2020-03-10] MEDS: DOCUSATE SODIUM 100 MG CAP PO SCH (09:17)
[2020-03-10] MEDS ORDERED: CeleBREX 200 MG CAP PO SCH (12:00)
--- NOTE | 2020-03-11 14:00 | Discharge Summary ---
Date of Service date of admission: March 09, 2020 date of discharge: 03-10-20 Admission HPI Per Admitting Provider Cony is a 59 year old female who complains of left knee pain, presents for pre- op evaluation prior to a left total knee replacement by dr Prince at [facility]. she complains of pain, crepitus, decreased range of motion and stiffness in her left knee. she states that the symptoms have been chronic and have gradually worsened. she states that the symptoms occur constantly with intermittent worsening. Currently the patient states that the symptoms are moderate-severe. The pain is described as aching, sharp and throbbing. The symptoms are aggravated by ascending stairs, daily activities, first steps while awake walking. Prior NSAIDs include Motrin. she has been treated with previous cortisone injections as well as viscosupplementation injections in the past without much relief. she has had 2 prior knee scopes in 2013 and 2015. Principal Diagnosis Left knee arthritis Discharge Exam Constitutional WD/WN, vitals as above no acute distress Musculoskeletal Left Knee- NVDI, calf SNT, negative sue sign. DP palpable, able to wiggle toes/ankle movement without difficulty. dressing clean dry and intact. expected post-operative bruising noted. Discharge Data Allergies Allergy/AdvReac Type Severity Reaction Status Date / Time meperidine [From Demerol] Allergy Mild low blood Verified 03/09/20 05:55 pressure Consultations 03/09/20 10:40 Consult Case Management - Discharge Planning Routine Procedures Performed Operation Date: 01/28/20 07:00 <No data on this case meets the specified criteria> Operation Date: 02/25/20 08:20 <No data on this case meets the specified criteria> Operation Date: 03/09/20 07:15 Actual Procedures p Left Total Knee Arthroplasty(Left) - Michael Prince, Ordered Studies 01/28/20 05:00 US - OR guided needle placemen Routine 02/25/20 05:00 US - OR guided needle placemen Routine 03/09/20 05:00 US - OR guided needle placemen Routine Hospital Course (1) Arthritis of knee, left: POD 1 s/p Left TKA PT/OT protocols - WBAT DVT proph - ASA bid, SCD's, GUANAKO's Pain management as written Leukocytosis - asymptomatic; likely due to preop steroids and surgical stress. DC planning - Home with home health services. Total Time Total Time Spent Total Time Spent (In Minutes): 20 Total Time Includes: Examination of the Patient, Discharge Planning and Medication Reconciliation Discharge Plan Discharge Items Patient Disposition: Home - Home Health Services Reason For Visit: Osteoarthritis, Left Knee Discharge Diagnosis: Left total knee replacement Activity: Per Instructions section Lifting: Wait until after follow-up appointment Weightbearing: Left weightbearing Weightbearing Comment: as tolerated with walker Non-emergency contact: Surgeon Call non-emergency contact if: you have any medication questions, your temperature is above 101, your wound has increased redness, your wound has increased drainage and your wound pain has increased Follow-up/Referrals: Everton Meléndez M.D. [Primary Care Provider] - Diet: Regular Addtl Attending Provider Instructions: ACTIVITY RECOMMENDATIONS: SELF CARE INSTRUCTIONS AFTER TOTAL KNEE REPLACEMENT A. You may need to continue a physical therapy program after discharge from the hospital. There are several options available to you. Your doctor will assist you in selecting the best one for you. 1. An out-patient facility 2 to 3 times a week for therapy or home therapy. 2. Continue working on all exercises taught to you in the hospital. Your goals should be to increase bending of your knee to 90 degrees and beyond and to fully straighten your knee. B. You may progress at your own pace from walking with a walker or crutches to a cane; then to no assistive devices. C. Make walking a part of your daily routine. Be up as much as comfortable with rest periods throughout the day. Rest with leg elevation is very important. Use the ice wrap frequently for the first 3-4 weeks. D. There are no restrictions on activities. You may ride in a car, shop, participate in commercial instructor supervisor and all social activities. E. Wear the long elastic stockings (GUANAKO hose) 20 hours a day for 2 weeks after surgery. They can be removed several times a day for laundering and for a bath. F. You may shower, no tub baths until cleared by your doctor. SPECIAL CARE INSTRUCTIONS: VERY IMPORTANT TO READ AND REVIEW A. There are a few signs you need to watch for after you are home. Call [facility] if you notice any of the followin. Increased severe knee pain. Some pain is expected especially when you exercise. 2. Increased swelling in your leg or knee; pain or swelling of the calf muscle in either lower leg. 3. Any fluid drainage from the incision. 4. Shortness of breath or chest pain. B. Please call [facility] at if you have any concerns or questions about your operation or recovery. The doctor or his nurse will return your call promptly. C. You must take antibiotics before dental work, bladder, bowel or other surgery. Your doctor will provide you with a permanent care to carry describing this precaution. IMPORTANT: * REMEMBER TO TAKE ASPIRIN, 81 MG, TWICE DAILY FOR 4 WEEKS UNLESS OTHERWISE DIRECTED. THIS IS YOUR BLOOD THINNER. * HIGH RISK PATIENTS MAY BE PRESCRIBED A STRONGER BLOOD THINNER. THIS WILL BE PROVIDED AT DISCHARGE. * CALL IF INCREASED PAIN, REDNESS, DRAINAGE OR FEVER GREATER THAT 101. * WEAR GUANAKO HOSE 20 HOURS PER DAY FOR 2 WEEKS. * DERMABOND Prineo- This is a mesh tape dressing that is covered with glue. It should remain in place until the incision is properly healed, usually 10-14 days. This dressing is designed to naturally slough off. You may trim the excess mesh tape as it peels off. Incision may be briefly wet in a shower. Dry immediately by blotting with a clean, dry towel. Do not bath or swim until instructed by your doctor. Do not scratch, rub, or pick at the dressing. Do not apply any topical ointments or lotions until dressing is completely removed and/or instructed by your doctor. There may be a small piece of suture material at one end of your incision. Do not pull or trim this. If it is bothersome or catching on clothing, you may cover it with a band-aid. IF INCISION IS LEAKING THROUGH DRESSING, CALL THE OFFICE . FOLLOW UP VISIT: If appointment is not already scheduled: Please call [facility] to make a follow-up appointment for 2 weeks after your surgery at . Stand-Alone Forms: My [employer], Opioid Pain Management, Work/School Release (Inpt), Smoking Cessation Medications and DC Order Prescriptions: New celecoxib [Celebrex] 200 mg Capsule 200 mg PO BID 30 Days Qty: 60 RF: 0 aspirin 81 mg Tablet,Delayed Release (Dr/Ec) 81 mg PO BID 30 Days Qty: 60 RF: 0 acetaminophen 500 mg Tablet 1,000 mg PO Q8 14 Days Qty: 84 RF: 0 polyethylene glycol 3350 [Miralax] 17 gram powder in packet 17 g PO DAILY PRN (Reason: constipation) Qty: 5 RF: 0 cefadroxil 500 mg capsule 500 mg PO BID Qty: 14 RF: 0 oxycodone 5 mg Tablet 5 - 10 mg PO Q4H PRN (Reason: pain) Qty: 30 RF: 0 Discontinued ibuprofen 200 mg Capsule 200 mg PO Q6H PRN (Reason: Pain) RF: 0 Discharge Orders: Discharge Order (Routine); Ordered 03/10/20 Ordered By: Marty Liriano/Other Patient Handouts: DVT Post Op Prevention, Post-Op Tips: Knee Admission Data Admit Date/Time: 03/09/20 09:17 Attending Provider: Michael Prince Admit Provider: Michael Prince Primary Care Provider: Everton Meléndez Other Interventions: Discharge Summary Assessment (RN) Last Done: 03/10/20 13:13
== END 2020-03-10 14:32 | disposition home health service (06) | DRG 470 ==
LOC: ASU 05:03 → 3W 05:03 → OBSVTOIN 09:17